=== PATIENT | male | born 1955 | race Caucasian/White ===

== ENCOUNTER 2021-07-08 10:34 | Inpatient (IN) | payer OTHER ==
[~2021-07-08] VITALS: Ht 167.6 cm; Wt 101.3 kg
[2021-07-08 11:13] LABS: HEMOGLOBIN 14.2 gm/dl (14.0-17.5); RED BLOOD COUNT 4.49 M/UL (4.20-5.50); WHITE BLOOD COUNT 13.2 K/UL (4.5-11.0)
[2021-07-08 12:34] LABS: BUN/CREATININE RATIO 17 (0-10)
[2021-07-08] MEDS ORDERED: METOPROLOL SUCC25 MG PO (13:28)
[2021-07-08] MEDS ORDERED: LISINOPRIL20 MG PO (13:28)
[2021-07-08] MEDS ORDERED: ATORVASTATIN CA80 MG PO (13:28)
[2021-07-08] MEDS ORDERED: NITROGLYCERIN0.4 MG SL (13:29)
[2021-07-08] MEDS ORDERED: IBU600 MG PO (13:29)
[2021-07-08] MEDS ORDERED: ASPIRIN EC81 MG PO (13:29)
[2021-07-09 05:37] LABS: RED BLOOD COUNT 4.33 M/UL (4.20-5.50)
[2021-07-09 05:45] LABS: WHITE BLOOD COUNT 16.6 K/UL (4.5-11.0)
[2021-07-09 07:45] LABS: BUN/CREATININE RATIO 21 (0-10)
[2021-07-10 09:23] LABS: HEMOGLOBIN 13.8 gm/dl (14.0-17.5); RED BLOOD COUNT 4.26 M/UL (4.20-5.50); WHITE BLOOD COUNT 19.6 K/UL (4.5-11.0)
[2021-07-10 09:53] LABS: BUN/CREATININE RATIO 23 (0-10)
[2021-07-11 09:02] LABS: HEMOGLOBIN 13.8 gm/dl (14.0-17.5); RED BLOOD COUNT 4.1 M/UL (4.20-5.50); WHITE BLOOD COUNT 16.5 K/UL (4.5-11.0)
[2021-07-11 09:32] LABS: BUN/CREATININE RATIO 28 (0-10)
[2021-07-12 02:18] LABS: HEMOGLOBIN 12.9 gm/dl (14.0-17.5); WHITE BLOOD COUNT 13.6 K/UL (4.5-11.0)
[2021-07-12 02:36] LABS: BUN/CREATININE RATIO 31 (0-10)
[2021-07-13 08:27] LABS: HEMOGLOBIN 14.1 gm/dl (14.0-17.5); RED BLOOD COUNT 4.34 M/UL (4.20-5.50); WHITE BLOOD COUNT 13.9 K/UL (4.5-11.0)
[2021-07-13 09:05] LABS: BUN/CREATININE RATIO 31 (0-10)
[2021-07-14 06:28] LABS: BUN/CREATININE RATIO 31 (0-10)
[2021-07-14 06:32] LABS: HEMOGLOBIN 13.7 gm/dl (14.0-17.5); RED BLOOD COUNT 4.23 M/UL (4.20-5.50); WHITE BLOOD COUNT 13.3 K/UL (4.5-11.0)
[2021-07-14 08:15] LABS: HBSAG SCREEN Negative (Negative); HEP A AB, IGM Negative (Negative); HEP B CORE AB, IGM Negative (Negative); HEP C VIRUS AB <0.1 (0.0-0.9)
[2021-07-15 03:10] LABS: BUN/CREATININE RATIO 28 (0-10)
[2021-07-16 02:56] LABS: HEMOGLOBIN 14.5 gm/dl (14.0-17.5); RED BLOOD COUNT 4.36 M/UL (4.20-5.50)
[2021-07-16 02:59] LABS: WHITE BLOOD COUNT 16.7 K/UL (4.5-11.0)
[2021-07-16 03:24] LABS: BUN/CREATININE RATIO 27 (0-10)
[2021-07-16] MEDS ORDERED: ELIQUIS 5 MG TAB5 MG PO ×2 (10:02)
[2021-07-16] MEDS ORDERED: HYDROXYZINE HCL10 MG PO (10:02)
[2021-07-16] MEDS ORDERED: DULERA 200 MCG8.8 GM INH (10:02)
[2021-07-16] MEDS ORDERED: FLUCONAZOLE100 MG PO (10:02)
[2021-07-16] MEDS ORDERED: AYR NASAL SPRAY50 ML (10:02)
[2021-07-16] MEDS ORDERED: DOCUSATE SODIU100 MG PO (10:02)
[2021-07-16] MEDS ORDERED: THERAGRAN M TAB1 EA PO (10:02)
[2021-07-16] MEDS ORDERED: POLYETHYLENE GL17 GM PO (10:02)
[2021-07-16] MEDS ORDERED: LOPRESSOR 50 MG50 MG PO (10:02)
[2021-07-16] MEDS ORDERED: PROTONIX 40 MG40 M1 PO (10:02)
[2021-07-16] MEDS ORDERED: PROVENTIL HFA6.7 GM INH (10:02)
[2021-07-16] MEDS ORDERED: LOTRIMIN CREAM45 GM EXT (10:02)
== END 2021-07-16 12:57 | disposition home health service (06) | DRG 871 ==
LOC: ER1 10:34 → CDU 13:00 → PROG CARE 13:00 → CDU 14:25 → CCU 17:51 → PROG CARE 07-10 20:30
PROVIDERS: Emergency Medicine; Internal Medicine Infectious Disease; ADMIT Internal Medicine
PROC: 8E0ZXY6 Isolation (ICD-10-PCS; principal; 2021-07-08)
PROC: 3E0333Z Introduction of Anti-inflammatory into Peripheral Vein, Percutaneous Approach (ICD-10-PCS; 2021-07-08)
PROC: 3E033XZ Introduction of Vasopressor into Peripheral Vein, Percutaneous Approach (ICD-10-PCS; 2021-07-08)
PROC: B24BZZZ Ultrasonography of Heart with Aorta (ICD-10-PCS; 2021-07-08)
DX: A41.89 Other specified sepsis (principal); U07.1 COVID-19; J12.82 Pneumonia due to coronavirus disease 2019; J96.01 Acute respiratory failure with hypoxia; I26.99 Other pulmonary embolism without acute cor pulmonale; I82.4Z3 Acute embolism and thrombosis of unspecified deep veins of distal lower extremity, bilateral; B37.89 Other sites of candidiasis; R65.20 Severe sepsis without septic shock; I10 Essential (primary) hypertension; E78.5 Hyperlipidemia, unspecified; K76.0 Fatty (change of) liver, not elsewhere classified; E66.9 Obesity, unspecified; I95.9 Hypotension, unspecified; R53.81 Other malaise; L30.8 Other specified dermatitis; I48.0 Paroxysmal atrial fibrillation; F41.9 Anxiety disorder, unspecified; F32.A Depression, unspecified; G47.00 Insomnia, unspecified; K59.00 Constipation, unspecified; I08.3 Combined rheumatic disorders of mitral, aortic and tricuspid valves; R74.01 Elevation of levels of liver transaminase levels; B35.4 Tinea corporis; I25.10 Atherosclerotic heart disease of native coronary artery without angina pectoris; Z95.5 Presence of coronary angioplasty implant and graft; Z79.01 Long term (current) use of anticoagulants; Z79.82 Long term (current) use of aspirin; Z79.1 Long term (current) use of non-steroidal anti-inflammatories (NSAID); Z79.891 Long term (current) use of opiate analgesic; Z79.02 Long term (current) use of antithrombotics/antiplatelets; Z79.811 Long term (current) use of aromatase inhibitors; Z82.3 Family history of stroke; Z80.8 Family history of malignant neoplasm of other organs or systems; Z82.49 Family history of ischemic heart disease and other diseases of the circulatory system; Z68.36 Body mass index [BMI] 36.0-36.9, adult
CPT/HCPCS: ECHO; 0240U; 36415; 36600; 71045; 76705; 80048; 80053; 80074; 81001; 82550; 82553; 82728; 82803; 82962; 83605; 83735; 83874; 83880; 84439; 84443; 84484; 85025; 85379; 85610; 85652; 85730; 86140; 87040; 93005; 93306; 93970; 94640; 94760; 96372; 96374; 96375; 96376; 97110-GP-CQ; 97116-GP-CQ; 97162; 97530; 99285; J0456; J0696; J1100; J1650; J7030; J7040; Q9967

== ENCOUNTER → 2021-08-26 | Outpatient (CLI) | payer OTHER ==
[~2021-08-26] MED LIST: ASPIRIN EC81 MG PO; ATORVASTATIN CA80 MG PO; AYR NASAL SPRAY50 ML; DOCUSATE SODIU100 MG PO; DULERA 200 MCG8.8 GM INH; ELIQUIS 5 MG TAB5 MG PO; FLUCONAZOLE100 MG PO; HYDROXYZINE HCL10 MG PO; IBU600 MG PO; LISINOPRIL20 MG PO; LOPRESSOR 50 MG50 MG PO; LOTRIMIN CREAM45 GM EXT; METOPROLOL SUCC25 MG PO; NITROGLYCERIN0.4 MG SL; POLYETHYLENE GL17 GM PO; PROTONIX 40 MG40 M1 PO; PROVENTIL HFA6.7 GM INH; THERAGRAN M TAB1 EA PO
== END ==
LOC: EXRD 11:09
DX: R06.02 Shortness of breath (principal); M79.89 Other specified soft tissue disorders
CPT/HCPCS: 71046

== ENCOUNTER → 2021-09-08 | Outpatient (CLI) | payer OTHER ==
[~2021-09-08] MED LIST changes: +MULTAQ 400 MG400 MG PO; +[UNRECOGNIZED DRUG - REMARK]
[2021-09-08 07:29] LABS: HEMOGLOBIN 13.9 gm/dl (14.0-17.5); RED BLOOD COUNT 4.3 M/UL (4.20-5.50); WHITE BLOOD COUNT 8.5 K/UL (4.5-11.0)
[2021-09-08 07:44] LABS: BUN/CREATININE RATIO 17 (0-10)
== END ==
LOC: CATH 06:41
PROVIDERS: Internal Medicine Cardiovascular Disease
DX: I48.19 Other persistent atrial fibrillation (principal); I49.3 Ventricular premature depolarization; I10 Essential (primary) hypertension; I25.10 Atherosclerotic heart disease of native coronary artery without angina pectoris; E78.5 Hyperlipidemia, unspecified; U09.9 Post COVID-19 condition, unspecified; R06.09 Other forms of dyspnea; I26.99 Other pulmonary embolism without acute cor pulmonale; Z79.01 Long term (current) use of anticoagulants; Z87.891 Personal history of nicotine dependence; K21.9 Gastro-esophageal reflux disease without esophagitis; E55.9 Vitamin D deficiency, unspecified; Z79.82 Long term (current) use of aspirin; Z20.822 Contact with and (suspected) exposure to COVID-19
CPT/HCPCS: 80048; 82962; 85027; 92960; 93005; J1200; J1742; J2250; J2310; J3010; J7040

== ENCOUNTER → 2021-11-16 | Outpatient (CLI) | payer OTHER | LOC: EXRD 11:33 | DX: I50.9 Heart failure, unspecified (principal); I51.7 Cardiomegaly | CPT/HCPCS: 71046 ==

== ENCOUNTER → 2022-02-17 | Outpatient (CLI) | payer OTHER ==
[~2022-02-17] MED LIST changes: +ALLERGY RELIEF60 MG PO; +FUROSEMIDE20 MG PO; +POTASSIUM CHLO10 ME2 PO; +PRIMIDONE50 MG PO; +SOTALOL80 MG PO; +ZESTRIL20 MG PO
[2022-02-17 08:34] LABS: HEMOGLOBIN 14.2 gm/dl (14.0-17.5); RED BLOOD COUNT 4.47 M/UL (4.20-5.50); WHITE BLOOD COUNT 6.3 K/UL (4.5-11.0)
== END ==
LOC: CATH 07:07
PROVIDERS: Internal Medicine Cardiovascular Disease
DX: I48.91 Unspecified atrial fibrillation (principal); I25.119 Atherosclerotic heart disease of native coronary artery with unspecified angina pectoris; I10 Essential (primary) hypertension; E78.5 Hyperlipidemia, unspecified; Z87.891 Personal history of nicotine dependence
CPT/HCPCS: 36415; 80048; 85027; 92960; 93005; J1200; J1742; J2250; J2310; J3010; J7040

== ENCOUNTER → 2022-02-18 | Outpatient (CLI) | payer OTHER | LOC: HEART 5 08:18 | DX: I25.119 Atherosclerotic heart disease of native coronary artery with unspecified angina pectoris (principal); I10 Essential (primary) hypertension; R06.02 Shortness of breath | CPT/HCPCS: 78452; A9502; J2785 ==